=== PATIENT | male | born 1985 | race Two or more races ===

== ENCOUNTER 2017-12-11 14:24 | Outpatient (CLI) | payer OTHER | END 2017-12-11 23:59 | disposition home or self-care (01) | LOC: MSC 14:24 | PROVIDERS: ATTEND Anesthesiology | DX: Z51.89 Encounter for other specified aftercare (principal); M51.26 Other intervertebral disc displacement, lumbar region; M47.817 Spondylosis without myelopathy or radiculopathy, lumbosacral region; M48.8X6 Other specified spondylopathies, lumbar region ==